=== PATIENT | female | born 1975 | race Two or more races ===

== ENCOUNTER 2021-01-24 23:39 | Emergency (ER) | payer OTHER ==
[~2021-01-24] VITALS: Ht 165.1 cm; Wt 100.0 kg
--- NOTE | 2021-01-25 00:31 | PHYS DOC ---
Past Medical History Past Medical History: No Pertinent History Past Surgical History: No Surgical History Smoking Status: Never Smoker Alcohol Use: None Drug Use: None General Adult EDM: Chief Complaint: LACERATION/AVULSION HPI: HPI: 45-year-old female presents to the emergency department after she slipped and fell on a puddle, landing on her left elbow causing a laceration. She also reports that she hit the back of her head and endorses loss of consciousness along with neck pain. She denies any further pain anywhere else. Her tetanus vaccine is not up-to-date. She did not ibuprofen prior to arrival. She does not use blood thinning medications. The patient denies nausea, vomiting, fever, chills, chest pain, shortness of breath, abdominal pain, or any other complaints. Review of Systems: Review of Systems: ROS is otherwise negative except for what was mentioned in the HPI Heart Score: C/O Chest Pain: No Allergies: Allergies: Allergies Coded Allergies Type Severity Reaction Last Updated Verified No Known Drug Allergies 01/25/21 No Physical Exam: PE: Constitutional: No acute distress, non-toxic appearance. HENT: Atraumatic, bilateral external ears normal, nose normal. Neck: Cervical spinal tenderness to palpation, thoracic and lumbar nontender Eyes: PERRLA, EOMI, conjunctiva normal, no discharge. Cardiovascular: Heart rate regular rhythm. 2+ radial pulses Lungs & Thorax: No respiratory distress, symmetrical expansion. Bilateral breath sounds clear to auscultation Abdomen: Soft, no tenderness Skin: Warm, dry. 2 cm laceration to the left elbow area Extremities: Tenderness is appreciated to the left elbow Neurologic: Alert and oriented X 3, normal motor function, normal sensory function, no focal deficits noted. Non ataxic gait. GCS 15. Radiology/Procedures: Radiology/Procedures: EXAMINATION: CT head and cervical spine without IV contrast INDICATION:45 years, Female, fall. COMPARISON: None TECHNIQUE: Spiral acquisition of contiguous images from the skull base to the vertex were obtained. CT of the cervical spine was obtained using contiguous spiral imaging from the skull base to the upper thoracic level. Sagittal and coronal 2D reformatted series were provided by the technologist. Soft tissue and bone window algorithms were reviewed. Exposure: One or more of the following individualized dose reduction techniques were utilized for this examination: 1. Automated exposure control 2. Adjustment of the mA and/or kV according to patient size 3. Use of iterative reconstruction technique. FINDINGS: CT HEAD: The ventricles are normal in size. Neither mass, midline shift, intracranial hemorrhage, acute/subacute ischemic changes, nor extraaxial fluid collections are seen. The brain parenchyma is normal in appearance. The paranasal sinuses, mastoid air cells, and middle ears are clear. The orbital contents appear within normal limits. CT CERVICAL SPINE: Anatomic alignment of the cervical spine is maintained. Neither fracture, subluxation, nor traumatic spondylolisthesis is seen. The vertebral body heights and intervertebral disk spaces are preserved. There is no evidence of a large intraspinal hematoma. The prevertebral and paravertebral soft tissues are within normal limits. IMPRESSION: CT HEAD: No evidence of acute intracranial abnormality. CT CERVICAL SPINE: No evidence of fracture or traumatic spondylolisthesis of the cervical spine. Left elbow x-ray without acute fracture. Interpreted by me Course & Med Decision Making: Course & Med Decision Making Laceration Repair Procedure Time: 0230 Confirmed: Patient, procedure, side, and site correct. Consent: Patient, has given verbal consent. Description/ repair Laceration: Location: Left elbow. 2 cm in length. Shape: Linear. Depth: Superficial. Details: clean, no foreign material. Neurovascular/ tendon exam: intact. Anesthesia: 3 ml, 1% lidocaine, with epinephrine. Preparation: sterile field established. Irrigation: wound irrigated copiously with normal saline with pressure cap. Debridement: none. Skin closure: Simple interrupted technique. Suture: 3 4-0 Ethilon Complexity: single layer. Post procedure exam: Circulation, motor, sensory examination intact, Bleeding controlled. Complications: None. Patient tolerated: Well. Performed by: Lanre Love DO. CT as above, laceration repaired at the bedside, tetanus updated, patient was counseled on concussion, laceration repair and laceration care. Patient to have sutures removed in 7 days. My Orders - LANRE LOVE DO Procedure Category Date Status Time Elbow Left 3v RAD 01/25/21 Taken 00:27 Ct Head [address] Cervical CT 01/25/21 Resulted Spine Wo 00:27 Cbc W [facility] LAB 01/25/21 Complete 00:27 Comprehensive LAB 01/25/21 Complete Metabolic Panel 00:27 Type And Screen BBK 01/25/21 In Process 00:27 Ua, Cult If Indicated LAB 01/25/21 Logged 00:27 Urine Test AYANA 01/25/21 In Process 00:27 Morphine Sulfate PHA 01/25/21 Complete (Morphine Sulfate) 01:00 Diph,Pertuss(Acell),Tet PHA 01/25/21 In Process Vac/Pf (Adacel T 03:00 Lidocaine 1%/Epi PHA 01/25/21 In Process 1:100,000 (Lidocaine 03:00 Departure Departure Impression: Primary Impression: Laceration of left elbow Additional Impression: Concussion Disposition: HOME / SELF CARE / HOMELESS Condition: STABLE Patient Instructions: Concussion and Brain Injury, [id number], Laceration Care, Adult, [id number] Additional Instructions: You were seen in the emergency department for a laceration, which was repaired with sutures. As with all lacerations, there is a chance that the laceration will leave a scar. You should wear sunscreen and/or vitamin E cream to help reduce scar formation over the wound. The laceration area may take weeks-months to heal completely and may not return to its full tensile strength. You may apply topical bacitracin or Neosporin over the wound if this helps soothe the area. It is OK to shower with the wound after your remove the dressing. Wounds can be gently cleansed with soap and water in the shower, but you should avoid soaking the wound or swimming, generally until after sutures are removed. Lacerations have a chance of infection, and you should return to the ER for a recheck if you have fever, warmth, redness, increased swelling, pus draining from the sutured wound, or any further concerns. Please go to your primary care physician, an urgent care, or return to the ED to have your sutures removed in 7-10 days. You were seen in the emergency department for a headache after head trauma. Your CT scan did not show any acute fracture or bleeding. You most likely have a concussion. You should avoid any further head trauma or sports in the near future. If you continue to have symptoms you need to be evaluated by a primary care physician. You should return to the ED if you develop worsening pain, numbness, tingling, weakness, vomiting, vision change, or any other new or concerning symptoms. Do not continue with sports or physical activities until cl eared by a primary care physician. You should be monitored at home with a family member for the next 24 hours. LANRE LOVE DO Jan 25, 2021 00:31
[2021-01-25] MEDS ORDERED: MORPHINE SULFATE 4 MG/ML INJ. IVP ONE (01:00)
[2021-01-25 01:13] LABS: BASO % 0 % (0-3); EOS # 0.1 x10^3/uL (0.0-0.7); EOS % 1 % (0-3); HEMATOCRIT 38.1 % (36.0-47.0); HEMOGLOBIN 13.4 g/dL (12.0-15.5); LYMPH # 1.5 x10^3/uL (1.0-4.8); LYMPH % 18 % (24-48); MEAN CORPUSCULAR HEMOGLOBIN 31 pg (25-35); MEAN CORPUSCULAR HGB CONC 35 g/dL (31-37); MEAN CORPUSCULAR VOLUME 88 fL (79-100); MONO # 0.6 x10^3/uL (0.0-1.1); MONO % 7 % (0-9); NEUT # 5.9 x10^3/uL (1.8-7.7); NEUT % 73 % (31-73); PLATELET COUNT 263 x10^3/uL (140-400); RED BLOOD COUNT 4.34 x10^6/uL (3.50-5.40); RED CELL DISTRIBUTION WIDTH 12.4 % (11.5-14.5); WHITE BLOOD COUNT 8.1 x10^3/uL (4.0-11.0)
[2021-01-25 01:41] LABS: CALCIUM 9.1 mg/dL (8.5-10.1); CREATININE 0.8 mg/dL (0.6-1.0); GFR 77.6; POTASSIUM 3.5 mmol/L (3.5-5.1)
--- NOTE | 2021-01-25 01:44 | RAD ---
EXAMINATION: CT head and cervical spine without IV contrast INDICATION:45 years, Female, fall. COMPARISON: None TECHNIQUE: Spiral acquisition of contiguous images from the skull base to the vertex were obtained. C T of the cervical spine was obtained using contiguous spiral imaging from the skull base to the upper thoracic level. Sagittal and coronal 2D reformatted series were provided by the technologist. Soft t issue and bone window algorithms were reviewed. Exposure: One or more of the following individualized dose reduction techniques were utilized for thi s examination: 1. Automated exposure control 2. Adjustment of the mA and/or kV according to patient size 3. Use of iterative reconstruction technique. FINDINGS: CT HEAD: The ventricles are normal in size. Neither mass, midline shift, intracranial hemorrhage, acute/subacu te ischemic changes, nor extraaxial fluid collections are seen. The brain parenchyma is normal in annette earance. The paranasal sinuses, mastoid air cells, and middle ears are clear. The orbital contents ap pear within normal limits. CT CERVICAL SPINE: Anatomic alignment of the cervical spine is maintained. Neither fracture, subluxation, nor traumatic spondylolisthesis is seen. The vertebral body heights and intervertebral disk spaces are preserved. T here is no evidence of a large intraspinal hematoma. The prevertebral and paravertebral soft tissues are within normal limits. IMPRESSION: CT HEAD: No evidence of acute intracranial abnormality. CT CERVICAL SPINE: No evidence of fracture or traumatic spondylolisthesis of the cervical spine. Electronically signed by: Ralph Foote DO (01/25/2021 1:42 AM) [facility]
[2021-01-25 01:46] LABS: ALBUMIN 3.6 g/dL (3.4-5.0); TOTAL BILIRUBIN 0.3 mg/dL (0.2-1.0); TOTAL PROTEIN 7.3 g/dL (6.4-8.2)
[2021-01-25] MEDS ORDERED: LIDOCAINE 1%/EPI 1:100,000 20 ML VIAL. ONE (02:31)
[2021-01-25 02:45] VITALS: BP 124/66
--- NOTE | 2021-01-25 02:58 | RAD ---
History: Elbow pain, laceration Comparison: None. Findings: No acute fracture or malalignment of the left elbow. No significant joint effusion. Soft ti ssues demonstrate no evidence of radiopaque foreign bodies. Impression: No acute osseous findings of the left elbow. Electronically signed by: Ralph Foote DO (01/25/2021 2:55 AM) [facility]
[2021-01-25] MEDS ORDERED: DIPH,PERTUSS(ACELL),TET VAC/PF 0.5 ML SYRINGE. VAX IM ONE (03:00)
[2021-01-25] MEDS ORDERED: LIDOCAINE 1%/EPI 1:100,000 20 ML VIAL. INJ ONE (03:00)
== END 2021-01-25 03:05 | disposition home or self-care (01) ==
LOC: ER 23:39
DX: S51.012A Laceration without foreign body of left elbow, initial encounter (principal); S06.0X1A Concussion with loss of consciousness of 30 minutes or less, initial encounter; M54.2 Cervicalgia; R51.9 Headache, unspecified; W01.0XXA Fall on same level from slipping, tripping and stumbling without subsequent striking against object, initial encounter; Y99.8 Other external cause status; Y92.89 Other specified places as the place of occurrence of the external cause; Y93.89 Activity, other specified
CPT/HCPCS: 12001; 36415; 70450; 72125; 73080; 80053; 85025; 86850; 86900; 86901; 90471; 90715; 96374; 99285; J2270; J3490